=== PATIENT | male | born 1960 | race Hispanic/Latino ===

== ENCOUNTER → 2018-01-22 | Day surgery (SDC) | payer BC ==
[~2018-01-22] MED LIST: FENTANYL CITRATE/PF 100MCG/2 ML INJ ONE; GLIPIZIDE ER5 MG PO; HYOSCYAMINE SULFATE 0.5 MG/ML AMP ONE; INSULIN REGULAR, HUMAN 100 UNIT/1 ML 3ML VIAL ONE; LISINOPRIL-HCT1 EAC2 PO; METFORMIN HCL500 M1 PO; MIDAZOLAM HCL 2 MG/2 ML VIAL ONE; MULTI-VITAMIN1 EACH PO; PROPOFOL IV EMULSION 10 MG/ML 50 ML VIAL ONE; SIMVASTATIN40 MG PO
--- NOTE | 2018-01-22 11:46 | Operative Report ---
DATE OF PROCEDURE: January 22, 2018 REFERRING PHYSICIAN: Dr. Anya Hirsch. PROCEDURE PERFORMED: Colonoscopy with polypectomy. INDICATIONS FOR COLONOSCOPY: Colorectal cancer screening, new-onset constipation. MEDICATION: Patient was done under MAC. Please see anesthesiologist's note. PROCEDURE: With the patient in the left lateral decubitus position, the flexible fiberoptic Olympus colonoscope was inserted into the rectum with ease and advanced all the way to the cecum. Mucosa overlying the cecum grossly appeared to be within normal limits. The prep overall was suboptimal with scattered retained stools in the colon. Also, there was some evidence of melanosis coli throughout. One polyp was snared from the ascending colon. The transverse grossly appeared to be within normal limits, as well as the descending colon. The distal descending and the sigmoid were excessively spastic and irritable and suboptimally visualized. There were no obvious constricting or obstructing lesions. One minute polyp was hot biopsied from the sigmoid colon. The rectum grossly appeared to be within normal limits. The scope was then retroflexed into the distal rectum and small internal hemorrhoids were noted, none of which was actively bleeding. The scope was then straightened out. It was subsequently withdrawn. Patient tolerated the procedure well. IMPRESSION: 1. Suboptimal prep. 2. Melanosis coli. 3. Ascending colon polyp snared. 4. Left colon excessively irritable and spastic, primarily the sigmoid colon, and that was suboptimally visualized. 5. Sigmoid colon polyp hot biopsied. 6. Internal hemorrhoids, none actively bleeding. PLAN: Follow up histology. Initiate high-fiber low-fat diet. Initiate high-fiber supplement. Check TSH. Patient might benefit from a followup colonoscopy in 1 to 2 years considering his suboptimal prep. Job#: [id number] EV cc:ANYA HIRSCH MD
== END | disposition home or self-care (01) ==
LOC: ENDO 07:42
PROVIDERS: ATTEND Internal Medicine Gastroenterology
DX: Z12.11 Encounter for screening for malignant neoplasm of colon (principal); K63.5 Polyp of colon; K64.8 Other hemorrhoids; K63.89 Other specified diseases of intestine; K21.9 Gastro-esophageal reflux disease without esophagitis; I10 Essential (primary) hypertension; E78.5 Hyperlipidemia, unspecified; E11.9 Type 2 diabetes mellitus without complications; R12 Heartburn; R14.2 Eructation
CPT/HCPCS: 36415; 45384; 45385; 84443; 93005; J1980; J2250